=== PATIENT | female | born 1975 | race African-American/Black ===

== ENCOUNTER → 2016-06-12 | Outpatient (CLI) | payer SELFPAY ==
[~2016-06-12] MED LIST: NO MEDICATIONS
== END | disposition home or self-care (01) ==
LOC: CBAR 10:15
DX: E66.9 Obesity, unspecified (principal)
CPT/HCPCS: 36415; 86677

== ENCOUNTER → 2016-07-17 | Day surgery (SDC) | payer SELFPAY ==
--- NOTE | ~2016-07-17 | OR ---
Unit #: [id number] #: [id number] Patient: GALDINO LOVE [id number] [address] [address] [id number] O MR#: [id number] NAME: GALDINO LOVE ROOM: Date of Procedure: 07/17/2016 Admission Date: 07/17/2016 Surgeon: Sincere Napoles III, M.D. : 1975 Attending Physician: Sincere Napoles III, M.D. Primary Care Physician: Fatimah Shultz Aprn OPERATIVE REPORT PREOPERATIVE DIAGNOSIS Severe obesity. POSTOPERATIVE DIAGNOSIS Severe obesity. PROCEDURES PERFORMED Esophagogastroduodenoscopy and placement of intragastric Orbera balloon. ANESTHESIA MAC. SPECIMENS None. COMPLICATIONS None apparent. DESCRIPTION OF PROCEDURE After consent was obtained, the patient was brought to the endoscopy suite and placed in the left lateral decubitus position. We titrated the above sedation. I passed an EGD scope easily into the esophagus under direct visualization. She had normal peristalsis. No evidence of any erosions or esophagitis. There was no hiatal hernia seen. The scope was advanced on into the stomach. There were no ulceration or masses. The pylorus was patent and the first and second portions of the duodenum were normal. I then retroflexed the scope within the cardia and again there was no hiatal hernia seen. The scope was then carefully withdrawn. I then placed the Orbera intragastric balloon, which was lubricated and passed into the oropharynx and slid all the way down through the esophagus into the stomach. Once it was in good position in the stomach, I instilled 640 mL of normal saline into the balloon. The catheter was then deployed. I then was able to make sure the balloon was in good position. I then carefully removed the scope. She tolerated the procedure without any problems and returned to the recovery room in stable condition. Dictated by... Sincere Napoles III, M.D. VCL/modl Unit #: [id number] #: [id number] Patient: GALDINO LOVE TD: 07/24/2016 23:13 JOB #: [id number] OPERATIVE REPORT Page 1 of 1 X Sincere Napoles III, MD PROCEDURE OPERATIVE NOTE
--- NOTE | ~2016-07-17 | OR ---
Unit #: [id number] #: [id number] Patient: GALDINO LOVE [id number] [address] [place], [place] [address] [id number] O MR#: [id number] NAME: GALDINO LOVE ROOM: Date of Procedure: 07/17/2016 Admission Date: 07/17/2016 Surgeon: Sincere Napoles III, M.D. : 1975 Attending Physician: Sincere Napoles III, M.D. Primary Care Physician: Fatimah Fink Aprn OPERATIVE REPORT JOB NOTE: CC: FATIMAH FINK APRN PREOPERATIVE DIAGNOSIS Obesity. POSTOPERATIVE DIAGNOSIS Obesity. PROCEDURE PERFORMED Esophagogastroduodenoscopy and placement of intragastric Orbera balloon. ANESTHESIA MAC. SPECIMENS None. COMPLICATIONS None apparent. INDICATIONS FOR PROCEDURE This is a 40-year-old lady, who is here today for intragastric balloon placement. She understands the risks and benefits of the procedure and has viewed our online seminar. DESCRIPTION OF PROCEDURE After consent was obtained, the patient was brought to the endoscopy suite and placed in the left lateral decubitus position. We titrated the above sedation and I passed an EGD scope easily into the esophagus under direct visualization. Her esophagus appeared normal. There was no stomach pathology. Pylorus was patent and first and second portions duodenum appeared normal. I retroflexed the scope within the cardia and did not see any evidence of a hiatal hernia. After that I opened up the balloon kit, the scope was withdrawn. I lubricated the balloon and passed it through the oropharynx and into the esophagus without any difficulty. I then reinserted the endoscope and passed the balloon through the esophagus into the stomach. Once it was in good position in the stomach, I insufflated it to 640 mL with normal saline. I then detached the catheter from the balloon and suctioned out the excess air. The balloon was in good position. I then removed the scope and the catheter itself. The patient tolerated the procedure without any problems and returned to the recovery room in stable condition. Unit #: [id number] #: [id number] Patient: GALDINO LOVE Dictated by... Sincere Napoles III, M.D. VCL/jose TD: 07/18/2016 07:40 JOB #: [id number] OPERATIVE REPORT Page 1 of 1 X Sincere Napoles III, MD X PROCEDURE OPERATIVE NOTE
== END | disposition home or self-care (01) ==
LOC: COPS 07:59
DX: E66.01 Morbid (severe) obesity due to excess calories (principal); Z68.33 Body mass index [BMI] 33.0-33.9, adult; Z88.0 Allergy status to penicillin; Z88.5 Allergy status to narcotic agent; Z90.710 Acquired absence of both cervix and uterus
CPT/HCPCS: J2250